=== PATIENT | female | born 1960 | race Caucasian/White ===

== ENCOUNTER 2021-06-04 14:34 | Emergency (ER) | payer MEDICARE, MEDICAID ==
[~2021-06-04] VITALS: Ht 165.1 cm; Wt 81.8 kg
[~2021-06-04 14:34] MED LIST: METH-360 PO
[2021-06-04 16:10] LABS: BASOPHILS % (AUTO) 0.6 % (0-1); EOSINOPHILS # (AUTO) 0.2 X10'3 (0-0.9); HEMATOCRIT 41.5 % (35.0-45.0); LYMPHOCYTES # (AUTO) 1.7 X10'3 (1.1-4.8); LYMPHOCYTES % (AUTO) 21.6 % (21-51); MEAN CORPUSCULAR HEMOGLOBIN 30.1 PG (27.0-31.0); MEAN CORPUSCULAR HGB CONC 33.7 g/dL (33.0-36.5); MEAN CORPUSCULAR VOLUME 89.4 FL (78-98); MEAN PLATELET VOLUME 8.5 FL (7.4-10.4); MONOCYTES # (AUTO) 0.4 X10'3 (0-0.9); MONOCYTES % (AUTO) 4.9 % (2-12); NEUTROPHILS # (AUTO) 5.4 X10'3 (1.8-7.7); NEUTROPHILS % (AUTO) 70.9 % (42-75); PLATELET COUNT 244 X10'3 (140-440); RED BLOOD COUNT 4.64 X10'6 (4.20-5.60); RED CELL DISTRIBUTION WIDTH 13.2 % (11.5-14.5); WHITE BLOOD COUNT 7.7 X10'3 (4.5-11.0)
[2021-06-04 16:21] LABS: ALANINE AMINOTRANSFERASE 25 U/L (12-78); ALBUMIN 3.5 G/DL (3.4-5.0); ALBUMIN/GLOBULIN RATIO 0.9 (1.1-1.5); ALKALINE PHOSPHATASE 92 IU/L (46-116); ANION GAP 7 (8-16); ASPARTATE AMINO TRANSFERASE 20 U/L (10-37); BILIRUBIN,TOTAL 0.4 MG/DL (0.1-1.0); BLOOD UREA NITROGEN 10 MG/DL (7-18); BUN/CREATININE RATIO 9.4 (6.6-38.0); CALCIUM 8.9 MG/DL (8.5-10.1); CHLORIDE 106 MMOL/L (99-107); CREATININE 1.06 MG/DL (0.40-0.90); GLUCOSE 97 MG/DL (70-104); POTASSIUM 3.8 MMOL/L (3.5-5.1); SODIUM 142 MMOL/L (135-145); TOTAL CARBON DIOXIDE 28.7 MMOL/L (24-32); TOTAL PROTEIN 7.2 G/DL (6.4-8.2); eGFR 53 ML/MIN
[2021-06-04] MEDS ORDERED: LIDOcaine 2% 10ml TOPICAL JELLY (Urojet) TP ONE (18:35)
[2021-06-04 19:17] LABS: UA COLLECTION TYPE FOLEY CATH
[2021-06-04 19:18] LABS: CLARITY,URINE SLIGHTLY CLOUDY (Clear); COLOR,URINE YELLOW (Yellow); GLUCOSE, URINE NEGATIVE (Neg); KETONES,URINE NEGATIVE (Neg); NITRITES, URINE POSITIVE (Neg); OCCULT BLOOD,URINE NEGATIVE (Neg); PH,URINE 6.5 (4.8-8.0); PROTEIN,URINE NEGATIVE (Neg); UROBILINOGEN,URINE 0.2 E.U/dL (0.2-1.0)
[2021-06-04 19:19] LABS: LEUKOCYTE ESTERASE ,URINE LARGE (Neg)
[2021-06-04 19:20] LABS: BACTERIA,URINE FEW /HPF (Neg); RBC,URINE NONE SEEN /HPF (0-2); SQUAMOUS EPITHELIAL CELL,UR FEW /LPF (FEW); WBC CLUMPS,URINE MODERATE /HPF (NEGATIVE); WBC,URINE 50-100 /HPF (0-4)
[2021-06-04] MEDS ORDERED: morphine 4 MG/ML inj SYRINge IV ONE (21:10)
[2021-06-04] MEDS ORDERED: CefTRIAXone/D5W-Rocephin 1gm 50 ML IV ONE (21:10)
[2021-06-04] MEDS ORDERED: ketorolac tromethamine 15mg/ml inj. IV ONE (21:10)
[2021-06-04] MEDS ORDERED: normal saline 1000ML IV soln IVB ONE (22:05)
[2021-06-04] MEDS ORDERED: CEPH-585 PO (22:17)
[2021-06-04] MEDS ORDERED: fluconazole 150mg tablet PO ONE (22:20)
[2021-06-04] MEDS: magnesium citrate 296ml oral solution PO ONE (22:51)
--- NOTE | 2021-06-04 23:23 | NUR ---
PT C/O PAIN, NAUSEA, SITTING AT SIDE OF BED CRYING. DR REYES IN TO SEE PT, ADDITIONAL ORDERS PLACED.
[2021-06-04] MEDS ORDERED: iohexol 300mg/ml 100ml inj. ONE (23:26)
--- NOTE | 2021-06-04 23:49 | NUR ---
Pt moved from hallway 13 to bed 15.
[2021-06-05] MEDS: magnesium citrate 296ml oral solution PO ONE (00:03)
[2021-06-05] MEDS ORDERED: metoclopramide 5 mg/ml inj IV ONE (01:40)
--- NOTE | 2021-06-05 03:11 | NUR ---
PT WITH STABLE VS AND IS PREPARED FOR DISCHAGE. REPORTS HER PAIN IS 5 OUT OF 10 EPIGASTRIC.
[2021-06-05 03:12] VITALS: BP 111/62
== END 2021-06-05 04:00 | disposition home or self-care (01) ==
LOC: ER 14:34
DX: N39.0 Urinary tract infection, site not specified (principal); G89.29 Other chronic pain; M54.6 Pain in thoracic spine; K59.00 Constipation, unspecified; M79.661 Pain in right lower leg; M79.662 Pain in left lower leg; F17.200 Nicotine dependence, unspecified, uncomplicated; Z98.890 Other specified postprocedural states; Z90.710 Acquired absence of both cervix and uterus; Z79.2 Long term (current) use of antibiotics; Z79.899 Other long term (current) drug therapy; Z88.8 Allergy status to other drugs, medicaments and biological substances
CPT/HCPCS: 36415; 74022; 74177; 80053; 81001; 85025; 87077; 87088; 87186; 96365; 96375; 99285; J0696; J1885; J2270; J2765; J7030; Q9967; 96361